=== PATIENT | female | born 1995 | race Hispanic/Latino ===

== ENCOUNTER 2024-01-05 18:57 | Emergency (ER) | payer BC ==
[~2024-01-05] VITALS: Ht 175.3 cm; Wt 108.9 kg
[2024-01-05 19:19] LABS: RAPID GROUP A STREP negative (NEGATIVE)
[2024-01-05 19:25] LABS: SARS-CoV-2, RNA, NAAT NEGATIVE SARS CoV-2 (NEGATIVE)
[2024-01-05 19:31] LABS: INFLUENZA TYPE A Negative For Type A (NEGATIVE); INFLUENZA TYPE B Negative For Type B (NEGATIVE)
[2024-01-05 20:20] LABS: APPEARANCE,URINE CLOUDY (CLEAR); BILIRUBIN,URINE NEGATIVE (NEGATIVE); COLOR,URINE YELLOW (YELLOW); GLUCOSE, URINE (UA) NEGATIVE (NEGATIVE); KETONES,URINE 5 mg/dL (NEGATIVE); LEUKOCYTE ESTERASE ,URINE 25 Leu/uL (NEGATIVE); NITRATE,URINE NEGATIVE (NEGATIVE); OCCULT BLOOD,URINE NEGATIVE (NEGATIVE); PH,URINE 6.5 (5.0-8.0); PROTEIN,URINE 50 mg/dL (NEGATIVE); UROBILINOGEN,URINE 3 mg/dL (0.2-1.0)
[2024-01-05 20:27] LABS: ADD UA MICROSCOPIC YES; HCG,QUALITATIVE URINE NEGATIVE (NEGATIVE)
[2024-01-05 20:37] LABS: BACTERIA,URINE FEW /HPF (None Seen); MUCUS,URINE FEW LPF (None Seen); SQUAMOUS EPITHELIAL CELL,UR FEW /HPF (0-2)
[2024-01-05] MEDS ORDERED: AMOX1TAB16 PO (20:44)
[2024-01-05] MEDS: AMOX/CLAV 875/125MG TAB PO ONE (21:21)
[2024-01-05 21:25] VITALS: BP 103/67; PULSE 98; RESP 16; O2SAT 99
== END 2024-01-05 22:07 | disposition home or self-care (01) ==
LOC: EDH 18:57
DX: N30.01 Acute cystitis with hematuria (principal); R55 Syncope and collapse; Z20.822 Contact with and (suspected) exposure to COVID-19; Z98.890 Other specified postprocedural states
CPT/HCPCS: 81001; 81025; 87635; 87804; 87880; 93005